=== PATIENT | male | born 1980 | race Caucasian/White ===

== ENCOUNTER → 2016-07-19 | Outpatient (CLI) | payer OTHER ==
--- NOTE | 2016-07-19 11:57 | DI ---
Indication: ITS.[email or web address]: DX TESTING PROCEDURE: SHOULDER RIGHT 3 VIEWS: Encounter: Initial Comparison: None Findings: There is no acute fracture, dislocation or malalignment identified. Joint spaces are normal. Impression: No acute osseous abnormality. .
--- NOTE | 2016-07-19 13:21 | DI ---
Indication: ITS.REASON: DX TESTING PROCEDURE: LUMBAR SPINE 3 VIEWS: Encounter: Initial Comparison: None Findings: Alignment of the lumbar spine is within normal limits. No acute fracture. There are five nonrib-bearing lumbar-type vertebral bodies present. Evidence of an old healed right 12th posterior rib fracture. The vertebral body heights are maintained. Mild disk space narrowing at L4-L5. Mild degenerative facet change at L5-S1. Impression: Mild degenerative disk and facet disease of the lower lumbar spine. .
== END ==
LOC: IMA 11:11
DX: Z02.9 Encounter for administrative examinations, unspecified (principal)